=== PATIENT | female | born 1955 | race Hispanic/Latino ===

== ENCOUNTER → 2018-09-18 | Outpatient (CLI) | payer MEDICARE, OTHER ==
[~2018-09-18] VITALS: Ht 149.9 cm; Wt 93.0 kg
[~2018-09-18] MED LIST: ASPI-555 PO; ATOR20TA65 PO; BUSP7.5T7 PO; CALC-322 PO; CYCL30DR OP; DULO60CA64 PO; FURO20TA4 PO; HYDR25TA PO; INSLAN SQ; IPRA3AMP24 IH; LISI40TA4 PO; METF-446 PO; MONT10TA24 PO; MULTIVITAMIN PO; OMEP-50 PO; ONDANSETRON PO; REGADENOSON 0.4 MG/5 ML PF SYG IVP SCH; TRAZ-187 PO
== END | disposition home or self-care (01) ==
LOC: SHCH 08:03
PROVIDERS: ATTEND Internal Medicine Cardiovascular Disease
DX: R06.02 Shortness of breath (principal)
CPT/HCPCS: 78452; 93017; 96374; A9500 ×2; J2785

== ENCOUNTER → 2020-09-25 | Outpatient (CLI) | payer OTHER ==
[~2020-09-25] MED LIST changes: -ASPI-555 PO; +ASPI-556 PO; -LISI40TA4 PO; +LISI40TA9 PO; -MONT10TA24 PO; +MONT10TA32 PO; -OMEP-50 PO; +OMEP20CA12 PO; -REGADENOSON 0.4 MG/5 ML PF SYG IVP SCH
== END | disposition home or self-care (01) ==
LOC: SHCH 12:37
PROVIDERS: ATTEND Internal Medicine Cardiovascular Disease
DX: I35.1 Nonrheumatic aortic (valve) insufficiency (principal)
CPT/HCPCS: 93306; 93356